=== PATIENT | female | born 1975 ===

== ENCOUNTER 2019-02-15 16:40 | Outpatient (REF) | payer MEDICAID, SELFPAY ==
[2019-02-15 20:33] LABS: HCT 40.7 % (36.0-46.0); HGB 14.1 g/dL (12.0-15.5); Mean Corp. HGB Concentration 34.6 g/dL (32.0-36.0); Mean Corpuscular Hemoglobin 32.3 pg (27.0-33.0); Mean Corpuscular Volume 93.1 fL (80-95); Mean Platelet Volume 10.5 fL (8.0-11.0); Platelet Count 293 x1000/uL (130-400); RBC 4.37 m/cumm (4.00-5.20); RBC Distribution Width 11.9 % (11.7-14.6); White Blood Cell Count 11.07 k/cumm (4.4-10.8)
[2019-02-17 17:44] LABS: Bartonella Henselae IgM <1:20 titer (<1:20); Bartonella Quintana IgG <1:128 titer (<1:128); Bartonella Quintana IgM <1:20 titer (<1:20)
== END 2019-02-15 17:00 ==
LOC: NCHCN 16:40
PROVIDERS: Visit Provider Internal Medicine
DX: R22.9 Localized swelling, mass and lump, unspecified (principal)
CPT/HCPCS: 85027; 86611